=== PATIENT | female | born 1950 | race Caucasian/White ===

== ENCOUNTER → 2017-07-23 | Outpatient (CLI) | payer MEDICARE, OTHER ==
--- NOTE | 2017-07-23 16:58 | RAD ---
History: Osteoporosis, white female. Comparison: January 24, 2013. Findings: Bone Densitometry was performed with dual photon absorption of the lumbar spine and proximal right femur. Lumbar Spine: Bone density is 0.964 g/cm2 for L1-L4. T-Score is -1.8. Z-score is 0.4. Previous study gave T score of -2.2. Proximal right femur: Bone density is 0.829 g/cm2. T-Score is -1.4. Z-score is 0.3. Previous study gave T score of -1.4. IMPRESSION: Osteopenia of the lumbar spine and proximal right femur. World Health definition of osteoporosis and osteopenia: Normal = T-Score at or above -1.0; osteopenia = T-score between -1.0 and -2.5; osteoporosis = T-score at or below -2.5 Electronically signed by: Larry Pathak MD (07/23/2017 4:55 PM) [id number]
== END | disposition home or self-care (01) ==
LOC: DXRAD 14:58
PROVIDERS: ATTEND Nurse Practitioner Family
DX: M81.0 Age-related osteoporosis without current pathological fracture (principal); M85.88 Other specified disorders of bone density and structure, other site
CPT/HCPCS: 77080

== ENCOUNTER → 2018-10-13 | Outpatient (CLI) | payer MEDICARE, OTHER ==
--- NOTE | 2018-10-13 09:39 | RAD ---
EXAM: 3 views left shoulder DATE: 10/13/2018 12:00 AM INDICATION: Left shoulder pain COMPARISON: No Prior FINDINGS/ IMPRESSION: 1. Mild AC joint degenerative changes are seen. 2. No evidence of acute fracture or dislocation. 3. Humeral head is not high riding. Electronically signed by: Silvano Villareal MD (10/13/2018 9:36 AM) [facility]
== END | disposition home or self-care (01) ==
LOC: DXRAD 09:07
PROVIDERS: ATTEND Orthopaedic Surgery Sports Medicine
DX: M19.012 Primary osteoarthritis, left shoulder (principal)
CPT/HCPCS: 73030